=== PATIENT | female | born 1950 | race Caucasian/White ===

== ENCOUNTER 2016-12-12 13:53 | Outpatient (CLI) | payer OTHER, MEDICAID | END 2016-12-12 19:58 | disposition home or self-care (01) | LOC: SRD 13:53 | PROVIDERS: ATTEND Internal Medicine | DX: Z01.811 Encounter for preprocedural respiratory examination (principal); R05 Cough; M47.894 Other spondylosis, thoracic region; G95.29 Other cord compression; M79.604 Pain in right leg; Z90.49 Acquired absence of other specified parts of digestive tract; Z86.718 Personal history of other venous thrombosis and embolism | CPT/HCPCS: 71020-TC; 72072-TC; 93005; 93971 ==

== ENCOUNTER 2016-12-23 12:35 | Inpatient (IN) | payer OTHER, MEDICAID ==
[~2016-12-23] VITALS: Ht 165.1 cm; Wt 108.9 kg
[2016-12-23 12:35] VITALS: BP 129/84; PULSE 92; RESP 19; TEMP 97.4; O2SAT 95
--- NOTE | 2016-12-23 12:35 | NUR ---
Patient triaged and placed in waiting room. VSS and patient appears in no acute distress at this time. Accompanied by NAVEED, awaiting available bed, and MD notified of need for MSE.
--- NOTE | 2016-12-23 13:14 | NUR ---
BROUGHT BACK TO BED #3 AND REPORT GIVEN TO MAL
--- NOTE | 2016-12-23 13:30 | NUR ---
PT C/O EXACERBATION OF BACK PAIN WITH H/O MS.PT HAD NEUROSTIMULATOR PLACED BY ON FRIDAY W/NO PAIN RELIEF. PT H/O MULTIPLE DX.
[2016-12-23 13:58] LABS: BASOPHILS # (AUTO) 0.2 K/uL (0.0-0.2); BASOPHILS % (AUTO) 1.6 % (0.0-2.0); EOSINOPHILS # (AUTO) 0.2 K/uL (0.0-0.4); EOSINOPHILS % (AUTO) 1.5 % (0.0-4.0); HEMATOCRIT 35.6 % (36-48); HEMOGLOBIN 11.7 g/dL (12.0-16.0); LYMPHOCYTES # (AUTO) 1.7 K/uL (1.0-5.5); LYMPHOCYTES % (AUTO) 16.1 % (20.5-51.5); MEAN CORPUSCULAR HEMOGLOBIN 30 pg (27-31); MEAN CORPUSCULAR HGB CONC 33 % (32-36); MEAN CORPUSCULAR VOLUME 90 fL (79.0-98.0); MONOCYTES # (AUTO) 0.7 K/uL (0.0-1.0); MONOCYTES % (AUTO) 7.1 % (1.7-9.3); NEUTROPHILS # (AUTO) 7.6 K/uL (1.8-7.7); NEUTROPHILS % (AUTO) 73.7 % (40.0-70.0); PLATELET COUNT (AUTO) 173 K/uL (130-430); RED BLOOD CELL COUNT(AUTO) 3.96 MIL/uL (4.2-6.2); RED CELL DISTRIBUTION WIDTH 12.8 % (9.0-15.0); WHITE BLOOD COUNT (AUTO) 10.4 K/uL (4.8-10.8)
--- NOTE | 2016-12-23 14:00 | NUR ---
ER at bedside examining patient.
[2016-12-23 14:07] LABS: CALCIUM 8.9 mg/dL (8.4-11.0); CREATININE 0.72 mg/dL (0.55-1.30); POTASSIUM 4.5 mmol/L (3.5-5.1)
[2016-12-23 14:11] LABS: ALBUMIN 3.6 g/dL (3.4-4.8); TOTAL BILIRUBIN 0.4 mg/dL (0.0-1.0); TOTAL PROTEIN, SERUM 7.3 g/dL (6.4-8.3)
[2016-12-23 14:12] LABS: PROTHROMBIN TIME 11.1 SECS (9.5-12.5)
[2016-12-23] MEDS ORDERED: ONDANSETRON HCL 4 MG/2 ML VIAL IVP ONE (14:15)
[2016-12-23] MEDS ORDERED: HYDROmorphone 1 MG INJ. 1 MG/ML AMPUL IVP ONE (14:15)
--- NOTE | 2016-12-23 14:20 | NUR ---
IV PLACEMENT: # 20 gauge angiocath placed to left arm . Use of asceptic technique. Opsite placed over site. Blood return noted. Flushed with 10 cc of normal saline. No evidence of infiltration noted. Patient tolerated well.
--- NOTE | 2016-12-23 14:35 | NUR ---
patient complained of generalized pain specially lower back sharp, stimulator implated last friday but doesn't relieve the pain. dilaudid 1 mg and zofran 4 mg ivp. informed about action and possible adverse reaction. pt vebalized understanding.
--- NOTE | 2016-12-23 14:40 | NUR ---
PT MEDICATED TOLERATED WELL. WILL MONITOR FOR PAIN RELIEF.
--- NOTE | 2016-12-23 15:35 | NUR ---
PT MILD RESOLVING WILL CONTINUE TO MONITOR
--- NOTE | 2016-12-23 16:40 | NUR ---
Patient will be admitted to care of . Admitted to MED/SURG unit. Will go to room 135. Belongings list completed. Summary report printed. Report will be given at bedside.
--- NOTE | 2016-12-23 16:42 | NUR ---
ADMIT NOTE Received pt from ER to the floor with a diagnosis of chronic back pain syndrome and possible neuro stimulator failure. Admission process initiated. patient oriented to pain management, safety and call light-teach back done.
[2016-12-23 16:43] VITALS: BP 127/99; PULSE 94; RESP 18; TEMP 98.6; O2SAT 96
--- NOTE | 2016-12-23 17:05 | NUR ---
Received pt to assume care. Pt transferred to bed in a lot of pain to her back, pain scale 10/10. Dr. Maria in to see pt and orders left.
--- NOTE | 2016-12-23 17:27 | NUR ---
CONSULT CONSULT CALLED: YES CONSULTING PHYSICIAN: DR. BROWN REASON OF CONSULT: PAIN
--- NOTE | 2016-12-23 17:43 | NUR ---
PT PLACED ON TELE AND MONITOR SHOWS SR.
[2016-12-23] MEDS ORDERED: ONDANSETRON HCL 4 MG/2 ML VIAL IVP PRN (17:45)
[2016-12-23] MEDS ORDERED: CEPH-568 PO (17:47)
[2016-12-23] MEDS ORDERED: SULF1TAB3 PO (17:47)
[2016-12-23] MEDS ORDERED: [UNRECOGNIZED DRUG - CODE] PO (17:47)
[2016-12-23] MEDS ORDERED: OXYC10TA71 PO (17:47)
[2016-12-23] MEDS: HYDROmorphone 2 MG/ML VIAL IVP PRN ×2 (17:49→21:30)
--- NOTE | 2016-12-23 17:49 | NUR ---
BHARATHI UNABLE TO SCAN DILAUDID DUE TO NO COMPUTER AVAILABLE THAT WORKS. ASKED STAFF WHAT THEY DO AND THEY INFORMED ME TO LOOK AROUND FOR ONE THAT DOES. THERE IS NO COMPUTER AROUND THAT IS AVAILABLE TO DOCUMENT MY MEDICATION (SCANNING) AND THE PT HAS BEEN WAITING FOR PAIN MEDICINE.
[2016-12-23] MEDS ORDERED: [UNRECOGNIZED DRUG - CODE] IJ (17:54)
[2016-12-23] MEDS ORDERED: NAPR-1069 PO (17:54)
[2016-12-23] MEDS ORDERED: ACETAMINOPHEN 325 MG TABLET PO PRN (18:00)
--- NOTE | 2016-12-23 18:04 | NUR ---
PT C/O BEING VERY HOT. AFEBRILE, TEMP 98.5. EVS CALLED FOR A FAN.
[2016-12-23] MEDS ORDERED: FAMOTIDINE 20 MG TABLET PO ONE (18:15)
--- NOTE | 2016-12-23 18:24 | NUR ---
PAGED PAGED ALIN INGRAM AT [phone] SPOKE WITH DAREN.
--- NOTE | 2016-12-23 18:27 | NUR ---
ADMISSION ASSESSMENT ADMISSION ASSESSMENT DONE UNDER MST ASSESSMENT .
--- NOTE | 2016-12-23 18:30 | NUR ---
SPOKE WITH DR HOWARD ON THE PHONE REGARDING CONTINUED PAIN. DR HOWARD IS TRYING TO MAKE HEADS OR TAILS OF ALL THE PRESCRIPTIONS PT HAS BROUGHT TO THE HOSPITAL. PT IS UNABLE TO TELL STAFF WHAT MEDICATIONS SHE TAKES AT HOME AND HANDS US A BAG WITH PILL BOXES FILLED WITH UNLABELED PILLS, AND APPROXIMATELY 40 PRESCRIPTION BOTTLES FOR A VAIRETY OF MEDICATIONS, MOSTLY PAIN RELATED. MANY PRESCRIPTIONS ARE DUPLICATES. PT IS REQUESTING SOMETHING FOR RESTLESS LEG SYNDROME BUT IS UNABLE TO TELL US WHAT SHE TAKES, TELLING STAFF THERE IS SOMETHING IN THE BAG FOR IT. PT STATES SHE HAS TOO MUCH PAIN TO LOOK AT THIS TIME. DR HOWARD SAID WHEN THE PT IS ABLE TO TELL US WHAT CURRENT MEDS SHE TAKES, TO CALL HER BACK AND SHE WILL ORDER THEM.
--- NOTE | 2016-12-23 18:40 | NUR ---
SPOKE WITH DR HOWARD AGAIN AND INFORMED HER THAT WE ARE UNABLE TO GET AN ACCURATE MED LIST FORM PT DUE TO PAIN. SHE SAID SHE WOULD LEAVE SOME ORDERS IN THE COMPUTER.
--- NOTE | 2016-12-23 18:50 | NUR ---
DR BROWN CAME TO SEE PT. DR BROWN UPSET BECAUSE NURSE ISN'T DOING ANYTHING FOR HER PAIN. I INFORMED HIM THAT SHE HAS BEEN MEDICATED FOR PAIN. HE SAID HE WILL BE HANDLING ALL THE PAIN MEDICATIONS AND TO CALL HIM. I TOLD HIM DR HOWARD WAS ENTERING PAIN MEDICATIONS RIGHT NOW.
--- NOTE | 2016-12-23 19:00 | NUR ---
PT NOW REQUESTING A WEI CATHETER. SPOKE WITH DR HOWARD AGAIN AND SHE SAID NO WEI CATHETER. SHE ORDERED DIAPERS FOR THE PT. CHARGE NURSE KRYSTAL NOTIFIED. PT INFORMED.
--- NOTE | 2016-12-23 19:30 | NUR ---
STILL UNABLE TO COMPLETE MED REC IN THE COMPUTER BECAUSE THE PT IS UNABLE TO PROVIDE STAFF WITH A CURRENT LIST OF MEDICATIONS SHE TAKES AT HOME DESPITE ALL THE PILL BOTTLES AT THE BEDSIDE. I OFFERED TO GO THROUGH THEM AND READ THEM TO HER AND SHE REFUSED STATING THAT SHE COULDNT DO THAT RIGHT NOW. ENDORSED TO ONCOMING SHIFT.
--- NOTE | 2016-12-23 19:30 | NUR ---
REPORT GIVEN TO ONCOMING SHIFT. DIAPER APPLIED. PT MEDICATED WITH MS CONTIN EARLY AND AND MEDICAL STAFF ASSISTANT RN AWARE.
--- NOTE | 2016-12-23 19:30 | NUR ---
DR STORY IN TO SEE PT. ORDERS LEFT.
--- NOTE | 2016-12-23 19:31 | NUR ---
CONSULT: CONSULT CALLED FOR DR. STORY I SPOKE WITH MAURO STORY CALLED I TRANSFER OVER [facility] POWERTRAIN DESIGN ENGINEER RN
[2016-12-23] MEDS: POTASSIUM CHLORIDE 10 MEQ in NACL 0.9% 1,000 ML IV SCH (19:38)
[2016-12-23] MEDS: oxyCODONE HCL 10 MG TAB.ER.12H PO SCH (19:38)
[2016-12-23 19:55] VITALS: BP 116/79; PULSE 90; RESP 18; TEMP 96; O2SAT 94
--- NOTE | 2016-12-23 19:55 | NUR ---
Notes Patient alert and oriented, able to make needs known. Patient recently medicated with pain medicine by day shift nurse. Will re assess pain when time. No SOB noted. IV site patent, flushes well, infusing fluids as ordered. Patient repositioned in bed. Fall precautions maintained. Goal of pain management and safety this shift. Call light within reach. Will continue to monitor.
[2016-12-23] MEDS ORDERED: FLUT1DIS5 INH (20:04)
[2016-12-23] MEDS ORDERED: HYDR-1189 PO (20:04)
[2016-12-23] MEDS ORDERED: ALPR0.5T8 PO (20:04)
[2016-12-23] MEDS ORDERED: ALBMDI INH (20:04)
[2016-12-23] MEDS ORDERED: PANT40TA4 PO (20:09)
[2016-12-23] MEDS ORDERED: LISI-600 PO (20:09)
[2016-12-23] MEDS ORDERED: [UNRECOGNIZED DRUG - CODE] PO (20:09)
[2016-12-23] MEDS ORDERED: CYCL-365 PO (20:09)
[2016-12-23] MEDS ORDERED: ACET-1172 PO (20:09)
[2016-12-23] MEDS ORDERED: TIZA4TAB11 PO (20:13)
[2016-12-23] MEDS ORDERED: METH750T3 PO (20:13)
[2016-12-23] MEDS ORDERED: CYM30 PO (20:13)
[2016-12-23] MEDS ORDERED: BACL10TA PO (20:13)
[2016-12-23] MEDS ORDERED: ACET1TAB25 PO (20:13)
[2016-12-23] MEDS: DEXAMETHASONE SOD PHOSPHATE 4 MG/ML VIAL IVP SCH (21:29)
[2016-12-23] MEDS: SULFAMETHOXAZOLE/TRIMETHOPR DS 1 TABLET PO SCH (21:30)
[2016-12-23] MEDS ORDERED: [UNRECOGNIZED DRUG - OTHER] PO SCH (22:00)
[2016-12-23] MEDS ORDERED: ACETAMINOPHEN PO SCH (22:00)
[2016-12-23] MEDS ORDERED: OXYCODONE/ACETAMINOPHEN 5-325 TABLET PO PRN (22:00)
[2016-12-23] MEDS ORDERED: OXYCODONE HCL PO SCH (22:00)
--- NOTE | 2016-12-23 22:10 | NUR ---
Notes Patient recently medicated with pain medicine. No SOB noted. IV site patent, flushes well, infusing fluids as ordered. Call light within reach. Will continue to monitor.
--- NOTE | 2016-12-23 22:33 | NUR ---
Spoke to on the phone, informed MD of CT scan preliminary report. No new orders received.
--- NOTE | 2016-12-23 22:51 | NUR ---
P[facility]ED [facility] [phone] SPOKE WITH TAWANDA.
[2016-12-23] MEDS ORDERED: roPINIRole HCL 0.25 MG ( REQUIP )TABLET PO ONE (23:15)
[2016-12-24] VITALS: BP 134/72; PULSE 100; RESP 20; TEMP 97.3; O2SAT 93
--- NOTE | 2016-12-24 00:21 | NUR ---
Notes Recently medicated patient with Requip for c/o restless leg syndrome. No SOB noted. Afebrile. IV site patent, flushes well, ifnusing fluids as ordered. Call light within reach. Will continue to monitor.
[2016-12-24] MEDS: CEPHALEXIN 500 MG CAPSULE PO SCH ×5 (00:54→23:46)
[2016-12-24] MEDS: DEXAMETHASONE SOD PHOSPHATE 4 MG/ML VIAL IVP SCH ×5 (00:54→23:46)
[2016-12-24] MEDS: HYDROmorphone 2 MG/ML VIAL IVP PRN ×9 (00:59→21:48)
[2016-12-24 04:05] VITALS: BP 131/78; PULSE 97; RESP 18; TEMP 97.8; O2SAT 95
--- NOTE | 2016-12-24 04:24 | NUR ---
Notes Recently medicated with Dilaudid IV around 0335 as requested, pain re assessed. No SOB noted. Afebrile. IV site patent, flushes well, infusing fluids as ordered. Call light within reach. Will continue to monitor.
--- NOTE | 2016-12-24 06:53 | NUR ---
Closing Notes Patient recently medicated with Dilaudid PRN and scheduled decadron iv and keflex PO. No SOB noted. IV site patent, flushes well, infusing fluids as ordered. Patient repositioned in bed. Fall precautions maintained. Goal of pain management and safety met. Call light within reach. Will continue to monitor.
[2016-12-24 07:53] VITALS: BP 134/88; PULSE 13; RESP 17; TEMP 97.3; O2SAT 96
--- NOTE | 2016-12-24 07:58 | NUR ---
OPENING NOTE PT VS IS STABLE BUT HER PAIN WAS UNCONTROLLED /10, SO I HAVE HER THE DILAUDID PRN. PAIN THEN LOWERED TO A 7/10 AND I WILL CONTINUE TO MONITOR. PT BREAKFAST IS ABSENT, SO I WILL FOLLOW U WITH DIETARY
[2016-12-24 08:00] LABS: CALCIUM 8.8 mg/dL (8.4-11.0); CREATININE 0.58 mg/dL (0.55-1.30); POTASSIUM 4.7 mmol/L (3.5-5.1); THYROID STIMULATING HORMONE 0.28 uIu/mL (0.34-4.82)
[2016-12-24] MEDS: POTASSIUM CHLORIDE 10 MEQ in NACL 0.9% 1,000 ML IV SCH ×2 (09:26→21:46)
--- NOTE | 2016-12-24 09:41 | NUR ---
Nutrition Update Jonatan Scale 17 noted. Pt admitted for chronic pain syndrome, possible neuro stimulator. Diet: 2 gm Na BMI: 39.9 kg/m2 RD to follow per nutrition care standards.
[2016-12-24] MEDS: oxyCODONE HCL 10 MG TAB.ER.12H PO SCH ×2 (09:58→21:00)
[2016-12-24] MEDS: GABAPENTIN 300 MG CAPSULE PO SCH (09:59)
[2016-12-24] MEDS: FAMOTIDINE 20 MG TABLET PO SCH (09:59)
[2016-12-24] MEDS: roPINIRole HCL 0.25 MG ( REQUIP )TABLET PO SCH ×3 (09:59→21:46)
[2016-12-24] MEDS: SULFAMETHOXAZOLE/TRIMETHOPR DS 1 TABLET PO SCH ×2 (09:59→21:46)
--- NOTE | 2016-12-24 10:11 | NUR ---
ROUNDS PT RESTING IN BED, COMPLAINS PAIN IS STILL 03/10. SHE RECENTLY TOOK HER BID OXYCONTIN, SO I WILL REASSESS SHORTLY
[2016-12-24 12:00] VITALS: BP 137/93; PULSE 96; RESP 20; TEMP 96.3; O2SAT 94
--- NOTE | 2016-12-24 12:15 | NUR ---
DR HOWARD AT BEDSIDE DR HOWARD APPROVED A WEI CATHETER PER THE PATIENT'S INSISTENCE
[2016-12-24] MEDS ORDERED: ALBUTEROL MDI INHALATION 8 GM INH INH PRN (13:00)
[2016-12-24] MEDS ORDERED: DEXAMETHASONE SOD PHOSPHATE 4 MG/ML VIAL IVP ONE (13:15)
[2016-12-24] MEDS ORDERED: DULoxetine HCL 30 MG CAPSULE.DR (CYMBALTA) PO ONE (13:15)
[2016-12-24] MEDS ORDERED: ALBUTEROL SULFATE (PRN) 2.5 MG/3 ML VIAL.NEB INH (13:30)
--- NOTE | 2016-12-24 14:00 | NUR ---
ROUNDS PT RESTING IN BED AND SAID SHE IS COMFORTABLE BUT STILL IN PAIN. I WILL CONTINUE TO MONITOR
--- NOTE | 2016-12-24 14:11 | NUR ---
ROUNDS PT IS SITTING UP IN BED, TALKING ON HER CELLPHONE
[2016-12-24 15:36] VITALS: BP 135/78; PULSE 63; RESP 19; TEMP 96.6; O2SAT 96
--- NOTE | 2016-12-24 18:28 | NUR ---
ROUNDS PT SITTING IN BED, STILL EATING DINNER AND TALKING TO A FRIEND WHO IS AT BEDSIDE
--- NOTE | 2016-12-24 19:00 | NUR ---
closing rounds pt sitting in bed, complaining her pain management is not working well. vs stable, report provided at bedside
[2016-12-24 20:00] VITALS: BP 144/94; PULSE 91; RESP 20; TEMP 97.2; O2SAT 92
--- NOTE | 2016-12-24 20:00 | NUR ---
Initial PM Note Pt was received lying in bed fully awake, alert and oriented x3. No c/o pain or discomfort. Speech is clear and pt is able to make her needs known. VSS. Pt is afebrile. desk monitor is showing SR. Fall precautions are in place. Pt was instructed to call for assistance as needed and pt verbalized understanding. Call light is with pt and bed alarm is on. Three side rails are up. Bed is in the lowest and locked positions. IVF is infusing well in LFA. Will continue to monitor pt.
[2016-12-24] MEDS ORDERED: FLUTICASONE 500 mCg/SALMETEROL 50 mCg DISKUS W.DEV INH SCH (21:00)
--- NOTE | 2016-12-24 21:18 | NUR ---
PAGED: I PAGE [phone] [facility]. CHECKERER HAND DR. LANDA IN CALL JAMEL I SPOKE WITH JEZ LANDA CALLED BACK @ [phone]
[2016-12-24] MEDS: BACLOFEN 10 MG TABLET PO SCH (21:46)
--- NOTE | 2016-12-24 21:48 | NUR ---
Pain medication Dilaudid 2mg was given IV for c/o lower back pain with relief.
--- NOTE | 2016-12-24 22:30 | NUR ---
Wick Catheter Insertion Wick Cath #16 Peruvian was inserted utilizing sterile technique. 1000ml clear yellowish urine collected. Wick cath was secured to pt's right thigh.
--- NOTE | 2016-12-25 | NUR ---
Rounds Pt is lying comfortably in bed and no acute distress noted. Call light is with pt and bed alarm is on.
[2016-12-25 00:02] VITALS: BP 139/84; PULSE 88; RESP 18; TEMP 97.8; O2SAT 97
--- NOTE | 2016-12-25 02:00 | NUR ---
Rounds Pt is sleeping comfortably in bed. Call light is with pt and bed alarm is on.
--- NOTE | 2016-12-25 04:00 | NUR ---
Rounds Pt is sleeping without any distress noted. IVF is infusing well.
[2016-12-25 04:07] VITALS: BP 150/83; PULSE 82; RESP 18; TEMP 98.2; O2SAT 93
[2016-12-25] MEDS: CEPHALEXIN 500 MG CAPSULE PO SCH ×4 (05:57→23:37)
[2016-12-25] MEDS: DEXAMETHASONE SOD PHOSPHATE 4 MG/ML VIAL IVP SCH ×4 (05:57→23:37)
--- NOTE | 2016-12-25 06:30 | NUR ---
Closing Note Pt is awake and resting comfortably in bed. No acute distress noted. IVF is infusing well and call light is with pt. All pt's needs were attended to. No fall or injury noted this shift. Will endorse to day shift nurse.
[2016-12-25 08:00] VITALS: BP 146/93; PULSE 85; RESP 15; TEMP 96.8; O2SAT 99
--- NOTE | 2016-12-25 08:00 | NUR ---
OPENING NOTES PT WAS SLEEPING, BUT AWOKE UPON ASSESSMENT VS STABLE AT 3.5L NASAL CANULA, PT REPORTS PAIN 8/10. BED IN LOWEST POSITION, CALL LIGHT WITHIN REACH, AND BED ALARM SET
[2016-12-25] MEDS: FLUTICASONE/VILANTEROL 1 EACH BLST.W.DEV INH SCH (09:00)
[2016-12-25] MEDS: HYDROmorphone 2 MG/ML VIAL IVP PRN ×4 (09:06→23:52)
[2016-12-25] MEDS: SULFAMETHOXAZOLE/TRIMETHOPR DS 1 TABLET PO SCH ×2 (09:06→21:48)
[2016-12-25] MEDS: FAMOTIDINE 20 MG TABLET PO SCH (09:07)
[2016-12-25] MEDS: roPINIRole HCL 0.25 MG ( REQUIP )TABLET PO SCH ×3 (09:07→21:48)
[2016-12-25] MEDS: GABAPENTIN 300 MG CAPSULE PO SCH (09:07)
[2016-12-25] MEDS: BACLOFEN 10 MG TABLET PO SCH ×2 (09:07→21:48)
[2016-12-25] MEDS: DULoxetine HCL 30 MG CAPSULE.DR (CYMBALTA) PO SCH (09:07)
[2016-12-25] MEDS: oxyCODONE HCL 10 MG TAB.ER.12H PO SCH ×2 (09:08→21:48)
--- NOTE | 2016-12-25 10:00 | NUR ---
[facility] STILL HAS NOT PROVIDED THE INHALER. LADAN IN PHARM IS RESEARCHING THE MATTER Addendum: 12/25/16 at 1850 by Maciel Bee RN LADAN FROM PHARMACY EXPLAINED THIS PARTICULAR TYPE OF INHALER IS NOT AVAILABLE AT THIS FACILITY. PT IS SCHEDULED TO TRANSFER TO [facility] TODAY, THE MATTER WAS DROPPED
--- NOTE | 2016-12-25 10:12 | NUR ---
DISCHARGE PLANNING DC order to SNF. Faxed SNF referral to [phone] [facility] [phone]. Will follow up. Addendum: 12/25/16 at 1027 by Isabel STEELE Received call from [place] at [facility] patient accepted and will return call back with bed assignment. JENNIFER Choi made aware. Addendum: 12/25/16 at 1055 by Isabel Miller DP Spoke with Katerina in admitting at [facility] patient assigned to room 116 RN to report [phone] bed available anytime. JENNIFER Choi made aware. Addendum: 12/25/16 at 1154 by Isabel STEELE Per patient requested faxed referral to [phone]. will follow up. Addendum: 12/25/16 at 1241 by Isabel Miller DP Spoke with Jennifer at [facility] patient accepted assigned to room 8B RN to report [phone] bed [address] NIKHIL [address] made aware. Called [facility] [phone] spoke with Mayuri albrecht Eleazar transport lease picker 6pm. Placed transportation packet in nurses station. Addendum: 12/25/16 at 1553 by Isabel STEELE Received call from Jennifer at [facility] who stated bed not available for patient discharge till tomorrow. JENNIFER Melo confirmed with Dr Candace forrest to discharge patient to [facility] when bed available. DCP will follow up in AM on bed assignment. Called [facility] spoke with Mayuri og transport on will call.
[2016-12-25 11:27] VITALS: BP 121/75; PULSE 73; RESP 19; TEMP 97; O2SAT 98
--- NOTE | 2016-12-25 11:30 | NUR ---
DC PLANNING; S/W dr. Maria, ordered to dc the pt. to [facility] for pain managements . Dr. Tucker and dr. Dutta has privileges there not at [place]. Comfirmed with the pt. she agreed to go to [place] because she wants both dr. Tucker and dr. Dutta to continue the care for her. keke Bose made aware
[2016-12-25] MEDS: POTASSIUM CHLORIDE 10 MEQ in NACL 0.9% 1,000 ML IV SCH ×2 (11:34→23:37)
--- NOTE | 2016-12-25 12:00 | NUR ---
ROUNDS PT RESTING IN BED. PAIN MANAGEMENT HAS NOT BEEN SUCCESSFUL, I WILL CONTINUE TO MONITOR. CALL LIGHT IS WITHIN REACH, BED IS IN LOWEST POSITION, AND BED ALARM IS SET
--- NOTE | 2016-12-25 13:06 | NUR ---
CALLED DR LEE GARCIA CONSTIPATION ORDERS RECEIVED AND ENTERED.
[2016-12-25] MEDS ORDERED: DOCUSATE SODIUM 250 MG CAPSULE PO ONE (13:15)
[2016-12-25] MEDS ORDERED: BISACODYL 10 MG/SUPPOSITORY RC ONE (13:15)
--- NOTE | 2016-12-25 13:48 | NUR ---
PHYSICAL THERAPY AT BEDSIDE
--- NOTE | 2016-12-25 14:00 | NUR ---
ROUNDS PT SITTING UP IN BED, WATCHING TV. SHE STATED THAT ASIDE FROM HER CHRONIC PAIN SHE IS COMFORTABLE. BED IN LOWEST POSITION, CALL LIGHT WITHIN REACH, BED ALARM SET
--- NOTE | 2016-12-25 15:35 | NUR ---
PHYSICAL THERAPY CO-SIGN The Physical Therapy Progress Notes documented by Sack Department Supervisor have been reviewed. I CONCUR W/OCCUPATIONAL THERAPY TECHNICIAN NOTE; CONT PER TX PLAN Reviewed/Co-Signed by: Jessica Martinez PT Documentation Done by: PEDRO LUIS MELÉNDEZ OCCUPATIONAL THERAPY TECHNICIAN Addendum: 12/25/16 at 1536 by Jessica Martinez PT Amended: Links added.
[2016-12-25 15:57] VITALS: BP 129/75; PULSE 83; RESP 18; TEMP 97.8; O2SAT 94
--- NOTE | 2016-12-25 16:15 | NUR ---
Call from Isabel KENNY land use planner, Informed me that patient will not be transferring tonight as bed is not available until tomorrow.
--- NOTE | 2016-12-25 16:17 | NUR ---
HOME MEDS SENT HOME WITH FAMILY PT'S SON, MALLORY, TOOK ALL OF THE HOME MEDS TO PT'S HOUSE RATHER THAN HAVING THEM TRANSPORT WITH HER TO [facility]
--- NOTE | 2016-12-25 17:21 | NUR ---
ROUNDS PT SLEEPING, FAMILY MEMBER AT BEDSIDE. I PLANNED TO ADMIN HER 2 1800 MEDS, BUT WILL LET HER SLEEP FOR ANOTHER 20 MINUTES
--- NOTE | 2016-12-25 18:27 | NUR ---
CLOSING NOTE HER STATED PAIN WAS 8/10 SO i ADMINISTERED THE PRN DILAUDID 2MG @1820. PT USED THE BEDPAN, BM X 1 WHICH LOOKED TO CONTAIN MUCOUS BUT MAY VERY WELL BE DUE TO HER RECENT SUPPOSITORY. PT IS CLEAN AND WANTS TO REST UNTIL HER PAIN SUBSIDES BEFORE EATING DINNER
--- NOTE | 2016-12-25 19:28 | NUR ---
Initial PM Note Pt was received lying in bed sleeping and no respiratory distress noted. warp coiler is showing SR. Wick cath to gravity drainage is patent with clear yellowish urine. Fall precautions are in place. Call light is with pt and bed alarm is on. Three side rails are up. Bed is in the lowest and locked positions. IVF is infusing well in LFA. Will continue to monitor pt.
[2016-12-25 20:00] VITALS: BP 133/93; PULSE 77; RESP 18; TEMP 97.6; O2SAT 97
--- NOTE | 2016-12-25 20:00 | NUR ---
Rounds Pt is awake and not in any acute distress. Fall precautions are in place.
--- NOTE | 2016-12-25 22:00 | NUR ---
Rounds Pt is lying comfortably in bed and no acute distress noted. IVF is infusing well in LFA. Call light is with pt and bed alarm is on.
--- NOTE | 2016-12-25 23:52 | NUR ---
Pain medication Dilaudid 2mg was given IV for c/o lower back pain with relief.
[2016-12-26 00:20] VITALS: BP 124/77; PULSE 76; RESP 18; TEMP 98.2; O2SAT 97
--- NOTE | 2016-12-26 02:00 | NUR ---
Rounds Pt is sleeping without any distress noted. IVF is infusing well. Call light is with pt and bed alarm is on.
--- NOTE | 2016-12-26 04:00 | NUR ---
Rounds Pt is sleeping comfortably in bed without any acute distress noted. Fall precautions are in place.
[2016-12-26 04:20] VITALS: BP 114/64; PULSE 66; RESP 18; TEMP 97.8; O2SAT 95
[2016-12-26] MEDS: CEPHALEXIN 500 MG CAPSULE PO SCH ×2 (05:55→12:27)
[2016-12-26] MEDS: DEXAMETHASONE SOD PHOSPHATE 4 MG/ML VIAL IVP SCH ×2 (05:56→12:27)
[2016-12-26] MEDS: HYDROmorphone 2 MG/ML VIAL IVP PRN ×3 (06:03→15:29)
--- NOTE | 2016-12-26 06:03 | NUR ---
Pain medication Dilaudid 2mg was given IV for c/o lower abdominal pain with relief.
--- NOTE | 2016-12-26 06:15 | NUR ---
Wick Catheter Re-insertion Wick cath was noted to be leaking onto pt's bed and upon examination, Wick cath was fully out intact with the balloon completely deflated. New Wick Cath #16 Ukrainian was reinserted by Nurse Crandall utilizing sterile technique. 950ml clear yellowish urine was collected. Wick cath was secured to pt's right thigh.
[2016-12-26 08:00] VITALS: BP 138/53; PULSE 77; RESP 18; TEMP 98.4; O2SAT 97
[2016-12-26] MEDS ORDERED: DOCUSATE SODIUM 250 MG CAPSULE PO SCH (09:00)
[2016-12-26] MEDS: oxyCODONE HCL 10 MG TAB.ER.12H PO SCH (09:00)
--- NOTE | 2016-12-26 09:00 | NUR ---
Notes Patient continues to state she is sitting in urine. Patient log rolled, bedding and bed christopher are dry and free of urine. Dressing to lower back is clean dry and intact.
--- NOTE | 2016-12-26 09:30 | NUR ---
RN ROUNDS PATIENT IS CURRENTLY RESTING IN BED, NO SIGNS OF DISTRESS NOTED, WILL CONTINUE TO MONITOR PATIENT, FALL PRECAUTIONS IN PLACE.
--- NOTE | 2016-12-26 09:50 | NUR ---
INITIAL NOTE RECEIVED PATIENT FROM HARBOR ENGINEER NURSE, PATIENT IS RESTING IN BED, NO SIGNS OF DISTRESS NOTED, PATIENT HAS NO COMPLAINTS OF PAIN OR DISCOMFORT AT THIS TIME, PATIENT STATES SHE IS WELL FROM WEI LEAKING BECAUSE WEI CATH IS TOO SMALL, PATIENT IS REQUESTING FOR WEI CATH TO BE CHANGED TO BIGGER SIZE, PATIENT CHECKED AND PATIENT IS DRY, INFORMED PATIENT THAT SHE IS DRY, TOLD PATIENT WE WILL FOLLOW UP WITH CHANGING CATH, ASSESSMENT COMPLETE, PATIENT IS CURRENTLY ON O2 SATING AT 97%, PATIENT HAS IV ON LEFT FOREARM WITH FLUIDS RUNNING , NO SIGNS OF INFILTRATION NOTED, PATIENT HAS WEI CATH DRAINING CLEAR YELLOW URINE, INSTRUCTED PATIENT TO USE CALL SALINAS IF ASSISTANCE IS NEEDED, PATIENT VERBALIZED UNDERSTANDING, CALL SALINAS LEFT IN PATIENT'S HAND, BED IN LOWEST POSITION, BED ALARM ON, TWO SIDE RAILS UP, FALL PRECAUTIONS IN PLACE, WILL CONTINUE TO MONITOR PATIENT. Addendum: 12/26/16 at 1048 by Enriqueta Adams RN WRONG TIME, CORRECT TIME 0850
--- NOTE | 2016-12-26 10:20 | NUR ---
MEDICATIONS PATIENT RECEIVED MORNING MEDICATIONS, EDUCATED PATIENT ON POTENTIAL SIDE EFFECTS PATIENT VERBALIZED UNDERSTANDING, NO OTHER NEEDS AT THIS TIME WILL CONTINUE TO MONITOR PATIENT, FALL PRECAUTIONS IN PLACE.
[2016-12-26] MEDS: FAMOTIDINE 20 MG TABLET PO SCH (10:24)
[2016-12-26] MEDS: GABAPENTIN 300 MG CAPSULE PO SCH (10:24)
[2016-12-26] MEDS: DULoxetine HCL 30 MG CAPSULE.DR (CYMBALTA) PO SCH (10:25)
[2016-12-26] MEDS: SULFAMETHOXAZOLE/TRIMETHOPR DS 1 TABLET PO SCH (10:25)
[2016-12-26] MEDS: BACLOFEN 10 MG TABLET PO SCH (10:25)
[2016-12-26] MEDS: roPINIRole HCL 0.25 MG ( REQUIP )TABLET PO SCH ×2 (10:25→15:29)
[2016-12-26 10:58] LABS: BILIRUBIN,URINE NEGATIVE (NEGATIVE); BLOOD, URINE 2+ (NEGATIVE); CLARITY/URINE CLEAR (CLEAR); COLOR,URINE YELLOW (YELLOW); GLUCOSE,URINE NEGATIVE (NEGATIVE); KETONES,URINE NEGATIVE (NEGATIVE); LEUKOCYTE ESTERASE ,URINE NEGATIVE (NEGATIVE); NITRITE, URINE NEGATIVE (NEGATIVE); PH,URINE 7.5 (5.0-8.0); PROTEIN URINE NEGATIVE (NEGATIVE); UROBILINOGEN,URINE 0.2 (0.2-1.0)
[2016-12-26 11:05] LABS: BACTERIA,URINE FEW /HPF (None Seen); WBC,URINE 0-3 /HPF (0-3)
--- NOTE | 2016-12-26 11:33 | NUR ---
DISCHARGE PLANNING Spoke with Jennifer at [facility] patient accepted assigned to room 8B RN to report [phone] bed available anytime. NIKHIL Oliver made aware. Called [facility] [phone] spoke with Chely arranged BLS transport bean picker 4pm. Placed transportation packet in nurses station.
--- NOTE | 2016-12-26 12:07 | NUR ---
RN ROUNDS PATIENT IS CURRENTLY BEING SEEN BY PT, WILL CONTINUE TO MONITOR, NO OTHER NEEDS AT THIS TIME.
[2016-12-26] MEDS: POTASSIUM CHLORIDE 10 MEQ in NACL 0.9% 1,000 ML IV SCH (12:26)
[2016-12-26] MEDS: FLUTICASONE/VILANTEROL 1 EACH BLST.W.DEV INH SCH (12:26)
[2016-12-26] MEDS ORDERED: MAG-AL HYDROX/SIMETH 30 ML UDC PO ONE (12:45)
[2016-12-26 13:04] VITALS: BP 114/72; PULSE 78; RESP 16; TEMP 98.3; O2SAT 96
[2016-12-26 13:51] VITALS: Ht 165.1 cm; Wt 108.9 kg
--- NOTE | 2016-12-26 14:33 | NUR ---
RN ROUNDS PATIENT IS CURRENTLY RESTING IN BED TALKING ON PHONE, NO OTHER NEEDS AT THIS TIME, WILL CONTINUE TO MONITOR PATIENT.
[2016-12-26 14:59] VITALS: BP 114/72; PULSE 78; RESP 16; TEMP 98.3; O2SAT 96
--- NOTE | 2016-12-26 16:34 | NUR ---
PT TRANSFERRED Report given to Lisandra at [facility]. Transfer packet with Transfer Orders and Medication Reconciliation form given to EMT with report. Exitcare provided. [facility] ID band removed, replaced with ID band with pt's name and . IV catheter still intact per facility request. All belongings sent with patient. Patient left floor via gurney escorted by EMT in no distress.
[2016-12-26 16:54] VITALS: BP 131/81; PULSE 86; RESP 16; TEMP 98.7; O2SAT 98
--- NOTE | 2016-12-26 17:07 | NUR ---
PHYSICAL THERAPY CO-SIGN The Physical Therapy Progress Notes documented by Information Assurance Specialist have been reviewed. Reviewed/Co-Signed by: Jessica Martinez PT Documentation Done by: RAMILA FOUNTAIN TRACTOR OPERATOR BATTERY Addendum: 12/27/16 at 0840 by Jessica Martinez PT Amended: Links added.
--- NOTE | 2016-12-27 11:15 | NUR ---
LATE ENTRY FOR 12/26/16 AT 0920AM WEI CATH LEAKED, WITH MINIMAL LEAKED NOTED FROM THE BOTTOM SHEET, PT STATED THAT THEY NORMALLY USE FR 22 SIZE WEI CATHETER , PT STATED THAT SHE HAD MULTIPLE WEI CATH INSERTION BEFORE DUE TO HER MULTIPLE SCLEROSIS. RE-INSERTE NEW FR 22 WEI CATH WITH GOOD ASEPTIC TECHNIQUE, WITH GOOD SLIGHT YELLOW OUTPUT NOTED. DRESSING ON MID BACK DRY AND INTACT WITH TEGADERM DRY AND INTACT,
== END 2016-12-26 16:35 | DRG 948 ==
LOC: SED 12:47 → SMU 15:53 → STU 16:40 → SMU 16:51 → STU 17:57 → SMU 12-26 10:13
PROVIDERS: ADMIT Internal Medicine; ATTEND Internal Medicine
DX: G89.18 Other acute postprocedural pain (principal); E87.1 Hypo-osmolality and hyponatremia; G35 Multiple sclerosis; E86.0 Dehydration; G89.4 Chronic pain syndrome; I10 Essential (primary) hypertension; M54.16 Radiculopathy, lumbar region; R33.9 Retention of urine, unspecified; E11.9 Type 2 diabetes mellitus without complications; E66.9 Obesity, unspecified; M48.06 Spinal stenosis, lumbar region; Z79.899 Other long term (current) drug therapy; Z68.39 Body mass index [BMI] 39.0-39.9, adult
CPT/HCPCS: 36415; 72128; 80048; 80053; 81000-TC; 83690-TC; 84443-TC; 85025; 85610-TC; 85730-TC; 96374; 96375; 97116-GP; 97530-GP; 99285; J1100; J1170; J2405; J3480; J7030

== ENCOUNTER 2022-03-29 13:21 | Emergency (ER) | payer OTHER, MEDICAID ==
[~2022-03-29] VITALS: Ht 165.1 cm; Wt 65.8 kg
[~2022-03-29 13:21] MED LIST: ALBMDI INH; ALPR0.5T8 PO; BACL10TA PO; CEPH-568 PO; CYCL10TA25 PO; CYM30 PO; FLUT1DIS5 INH; LISI20TA30 PO; OXYC10TA56 PO; PANT40TA45 PO; SULF1TAB3 PO; [UNRECOGNIZED DRUG - CODE] PO
[2022-03-29 13:29] VITALS: BP_SYST 114
--- NOTE | 2022-03-29 17:48 | NUR ---
Patient to ER bed 07 to gown for evaluation. Side rails up. Report given to NIKHIL Knowles
--- NOTE | 2022-03-29 17:50 | NUR ---
ER Dr. Harden at bedside examining patient.
--- NOTE | 2022-03-29 17:55 | NUR ---
Patient presents to ER for c/o of LAC on medial RLE. Patient states "I was at [employer] and I cut myself on the shopping cart." Patient reports pain 0/10 at this time. Patient denies recent TDAP vaccine at this time. NAD noted at this time. Will continue to monitor.
[2022-03-29] MEDS ORDERED: LIDOCAINE 1% 10 MG/ML, 20 ML MDV INJ ONE ×3 (18:00)
[2022-03-29] MEDS ORDERED: DIPH-TET-PERTUS Vaccine 0.5 ML VIAL (ADACEL) I.M. ONE (18:00)
--- NOTE | 2022-03-29 18:06 | NUR ---
ER MD Harden performing LAC care on RLE at bedside.
[2022-03-29] MEDS ORDERED: LIDOCAINE/EPI 1% 1:100000 20 ML VIAL INJ ONE (18:14)
[2022-03-29] MEDS ORDERED: BACITRACIN 1 GM OINT TP ONE (18:27)
--- NOTE | 2022-03-29 18:40 | NUR ---
Dressed wound w. Bacitracin, non-adherent dressing, stretch gauze, & tubular gauze.
--- NOTE | 2022-03-29 18:55 | NUR ---
Patient given written and verbal discharge instructions and verbalizes understanding. ER MD discussed with patient the results and treatment provided. Patient in stable condition. ID arm band removed. Patient educated on pain management and to follow up with PMD. Pain Scale 0/10. Opportunity for questions provided and answered. Patient A/Ox4, VSS, resp even and unlabored. NAD noted at this time.
[2022-03-29 18:56] VITALS: BP_SYST 124
== END 2022-03-29 18:55 | disposition home or self-care (01) ==
LOC: SED 13:21
DX: S81.811A Laceration without foreign body, right lower leg, initial encounter (principal); Z79.899 Other long term (current) drug therapy; W22.8XXA Striking against or struck by other objects, initial encounter; Y93.89 Activity, other specified; Y92.481 Parking lot as the place of occurrence of the external cause; Y99.8 Other external cause status
CPT/HCPCS: 99283; 90715; 90471; 12002; J2001